=== PATIENT | female | born 1985 | race Hispanic/Latino ===

== ENCOUNTER 2017-11-23 12:40 | Emergency (ER) | payer MEDICAID ==
[2017-12-18] MEDS ORDERED: NAPR-1023 PO (10:51)
== END 2017-11-23 14:11 | disposition home or self-care (01) ==
LOC: EDH 12:40
DX: J06.9 Acute upper respiratory infection, unspecified (principal); F32.9 Major depressive disorder, single episode, unspecified; M19.90 Unspecified osteoarthritis, unspecified site; Z79.899 Other long term (current) drug therapy

== ENCOUNTER 2017-12-19 06:18 | Day surgery (SDC) | payer MEDICAID ==
[~2017-12-19] VITALS: Ht 157.5 cm; Wt 90.6 kg
[~2017-12-19 06:18] MED LIST: NAPR-1023 PO; SODIUM CHLORIDE 0.9% 1000ML 1,000 ML IV ONE
[2017-12-19 06:48] VITALS: BP 118/67
[2017-12-19] MEDS ORDERED: PROPOFOL 10 MG/ML 20ML VIAL IV ONE (07:27)
== END 2017-12-19 08:09 ==
LOC: DAH 06:18
PROVIDERS: ATTEND Internal Medicine
DX: K29.60 Other gastritis without bleeding (principal); K22.8 Other specified diseases of esophagus; F32.9 Major depressive disorder, single episode, unspecified; E66.9 Obesity, unspecified; F41.9 Anxiety disorder, unspecified; Z79.899 Other long term (current) drug therapy; Z68.36 Body mass index [BMI] 36.0-36.9, adult; E78.5 Hyperlipidemia, unspecified; R63.4 Abnormal weight loss
CPT/HCPCS: 43239; 81025; 88305; 88312; 88342; A4606; J2704; J7030

== ENCOUNTER 2018-03-20 07:37 | Emergency (ER) | payer MEDICAID ==
[~2018-03-20 07:37] MED LIST changes: -SODIUM CHLORIDE 0.9% 1000ML 1,000 ML IV ONE
== END 2018-03-20 08:25 | disposition home or self-care (01) ==
LOC: EDH 07:37
DX: J03.90 Acute tonsillitis, unspecified (principal); M19.90 Unspecified osteoarthritis, unspecified site; Z79.899 Other long term (current) drug therapy

== ENCOUNTER 2020-01-23 06:05 | Day surgery (SDC) | payer MEDICAID ==
[2020-01-22 13:46] VITALS: BP 140/67
[2020-01-22 13:52] LABS: BASOPHILS % (AUTO) 0.4 % (0.0-5.0); EOSINOPHILS % (AUTO) 2.5 % (0.0-8.0); HEMATOCRIT 40.5 % (36-48); LYMPHOCYTES % (AUTO) 27.6 % (21.0-51.0); MEAN CORPUSCULAR HEMOGLOBIN 29.2 pg (27.0-33.0); MEAN CORPUSCULAR HGB CONC 33.3 g/dL (32.0-36.0); MEAN CORPUSCULAR VOLUME 87.5 fL (79-99); MONOCYTES % (AUTO) 5.9 % (3.0-13.0); NEUTROPHILS % (AUTO) 63.5 % (40.0-77.0); PLATELET COUNT (AUTO) 266 K/uL (130-400); RED BLOOD CELL COUNT(AUTO) 4.63 MIL/uL (4.00-5.50); RED CELL DISTRIBUTION WIDTH 12.5 % (11.0-15.5); WHITE BLOOD COUNT (AUTO) 7.2 K/uL (4.8-10.8)
--- NOTE | 2020-01-22 14:25 | NUR ---
SPOKE TO DR. DUARTE OFFICE AND HE IS AWARE PT. DOESN'T WANT BLOOD
[2020-01-23] VITALS (19 sets, daily range): BP systolic 114–140; BP diastolic 39–80
[~2020-01-23] VITALS: Ht 154.9 cm; Wt 101.6 kg
[~2020-01-23 06:05] MED LIST changes: +CEFAZOLIN 3GM /D5W 100ML 100 ML IV SCH; +LACTATED RINGERS 1000ML 1,000 ML IV SCH; -NAPR-1023 PO
[2020-01-23] MEDS ORDERED: LIDOCAINE PF 2% 5ML ABBOJECT ONE (07:00)
[2020-01-23] MEDS ORDERED: CEFAZOLIN SODIUM 1 GM VIAL ONE (07:01)
[2020-01-23] MEDS ORDERED: ROCURONIUM 10MG/1ML SYR 10 MG/ML ML ONE (07:03)
[2020-01-23] MEDS ORDERED: MIDAZOLAM HCL 1 MG/ML 2ML VIAL ONE (07:03)
[2020-01-23] MEDS ORDERED: BUPIVACAINE/PF 0.25% 30ML VIAL IJ ONE (07:03)
[2020-01-23] MEDS ORDERED: ONDANSETRON HCL 4 MG/2 ML VIAL ONE ×3 (07:03→09:29)
[2020-01-23] MEDS ORDERED: PROPOFOL 10 MG/ML 20ML VIAL IV ONE ×2 (07:03→08:35)
[2020-01-23] MEDS ORDERED: FENTANYL CITRATE PF 50 MCG/1 ML 2ML VIAL ONE ×2 (07:04→08:21)
[2020-01-23] MEDS ORDERED: DEXAMETHASONE SOD PHOSPHATE 10MG/ML 1ML VIAL ONE (08:21)
[2020-01-23] MEDS ORDERED: GLYCOPYRROLATE 1 MG/5 ML SYRINGE ONE (08:29)
[2020-01-23] MEDS ORDERED: NEOSTIGMINE 5MG/5ML SYR IV ONE (08:30)
[2020-01-23] MEDS ORDERED: MEPERIDINE-PF 25 MG/ML SYG ONE ×2 (08:56→09:05)
--- NOTE | 2020-01-23 09:53 | NUR ---
ASSESSMENT PT FROM PACU BY PACU STAFF DORIS ROJO. PT [id number]. ANGIE PAD IN PLACE. NO BLEEDING, OOZING NOTED TO SITE.
--- NOTE | 2020-01-23 10:40 | NUR ---
DISCHARGE ORal AND WRITTEN DISCHARGE INSTRUCTIONS GIVEN TO PT AND PTS MOTHER IN LAW ALONG WITH PRESCRIPTION. NO OTHER QUESTIONS AT THIS TIME.
== END 2020-01-23 10:50 | disposition home or self-care (01) ==
LOC: DAH 06:05
PROVIDERS: ATTEND Obstetrics & Gynecology
DX: Z30.2 Encounter for sterilization (principal); N92.0 Excessive and frequent menstruation with regular cycle; N81.4 Uterovaginal prolapse, unspecified; F41.9 Anxiety disorder, unspecified; F32.9 Major depressive disorder, single episode, unspecified; E66.9 Obesity, unspecified; Z68.41 Body mass index [BMI] 40.0-44.9, adult; Z90.49 Acquired absence of other specified parts of digestive tract; Z79.899 Other long term (current) drug therapy; Z83.3 Family history of diabetes mellitus; Z82.49 Family history of ischemic heart disease and other diseases of the circulatory system; Z82.5 Family history of asthma and other chronic lower respiratory diseases
CPT/HCPCS: 36415; 58563; 58671; 84703; 85025; 86850; 86900; 86901; 88305; A4213; A4215; A4221; A4222; A4223; A4264; A4335; A4351; A4355; A4510; A4600; A4649; A4663; A6260; C1769 ×2; G0168; J0690; J1100; J2001; J2175 ×2; J2250; J2405 ×3; J2704 ×2; J2710; J3010 ×2; J3490 ×2; J7030 ×2; J7120

== ENCOUNTER 2021-05-04 22:37 | Emergency (ER) | payer MEDICAID ==
[~2021-05-04] VITALS: Ht 154.9 cm; Wt 103.0 kg
[2021-05-04 22:43] VITALS: BP 120/74
[2021-05-05 01:01] LABS: APPEARANCE,URINE Clear (CLEAR); BILIRUBIN,URINE Negative (NEGATIVE); COLOR,URINE Yellow (YELLOW); GLUCOSE, URINE (UA) Negative (NEGATIVE); KETONES,URINE Negative (NEGATIVE); LEUKOCYTE ESTERASE ,URINE Negative (NEGATIVE); NITRATE,URINE Negative (NEGATIVE); OCCULT BLOOD,URINE Negative (NEGATIVE); PROTEIN,URINE Negative (NEGATIVE); UROBILINOGEN,URINE 0.2 mg/dL (0.2-1.0)
[2021-05-05 01:58] LABS: BASOPHILS % (AUTO) 0.4 % (0.0-5.0); EOSINOPHILS % (AUTO) 3.7 % (0.0-8.0); HEMATOCRIT 37.8 % (36-48); LYMPHOCYTES % (AUTO) 34.2 % (21.0-51.0); MEAN CORPUSCULAR HEMOGLOBIN 28.8 pg (27.0-33.0); MEAN CORPUSCULAR HGB CONC 32.8 g/dL (32.0-36.0); MEAN CORPUSCULAR VOLUME 87.9 fL (79-99); MONOCYTES % (AUTO) 5.5 % (3.0-13.0); PLATELET COUNT (AUTO) 225 K/uL (130-400); RED CELL DISTRIBUTION WIDTH 12.9 % (11.0-15.5); WHITE BLOOD COUNT (AUTO) 8.2 K/uL (4.8-10.8)
[2021-05-05 02:09] LABS: CREATININE 0.7 mg/dL (0.5-1.5); POTASSIUM 3.7 mmol/L (3.5-5.1)
[2021-05-05 02:18] LABS: B-TYPE NATRIURETIC PEPTIDE 13 pg/mL (0-100)
[2021-05-05 02:21] LABS: ALBUMIN 3.3 g/dL (3.5-5.0); BILIRUBIN,TOTAL 0.3 mg/dL (0.2-1.0); MAGNESIUM 1.8 mg/dL (1.80-2.40); THYROID STIMULATING HORMONE 3.61 uIU/mL (0.36-3.74); TOTAL PROTEIN, SERUM 7.6 g/dL (6.0-8.3)
== END 2021-05-05 04:06 | disposition home or self-care (01) ==
LOC: EDH 22:37
DX: R53.83 Other fatigue (principal); R06.02 Shortness of breath; R11.0 Nausea
CPT/HCPCS: 36415; 71045; 80053; 81003; 81025; 83690; 83735; 83880; 84443; 84484; 85025; 93005